=== PATIENT | female | born 1995 | race Caucasian/White ===

== ENCOUNTER 2019-09-02 19:25 | Outpatient (CLI) | payer MEDICAID ==
[2019-09-02 19:54] LABS: APPEARANCE,URINE CLEAR; BILIRUBIN,URINE NEGATIVE (NEGATIVE); COLOR,URINE YELLOW; GLUCOSE, URINE NEGATIVE (NEGATIVE); KETONES,URINE NEGATIVE (NEGATIVE); LEUKOCYTE ESTERASE,URINE NEGATIVE (NEGATIVE); NITRITE,URINE NEGATIVE (NEGATIVE); PROTEIN,URINE NEGATIVE (NEGATIVE); URINE SPECIFIC GRAVITY 1.008; UROBILINOGEN,URINE NEGATIVE mg/dL (<2.0)
[2019-09-02 20:12] LABS: URINE AMPHETAMINES SCREEN NEGATIVE; URINE BARBITURATES SCREEN NEGATIVE; URINE BENZODIAZEPINES SCREEN NEGATIVE; URINE COCAINE SCREEN NEGATIVE; URINE MARIJUANA (THC) SCREEN NEGATIVE; URINE METHADONE SCREEN NEGATIVE; URINE PHENCYCLIDINE SCREEN NEGATIVE
--- NOTE | 2019-09-02 20:44 | Non Stress Test Report ---
Non Stress Test Datetime Report Generated by CPN: 09/02/2019 20:44 DEMOGRAPHIC EGA NST: 35.2 INDICATION Indication for Study (NST) Other: labor check URINE RESULTS Urine Protein, NST: Negative Urine Ketones - NST: Negative Urine Glucose - NST: Negative Urine Blood - NST: Negative MONITORING Monitor Explained: Monitor Explained; Test Explained; Patient Verbalized Understanding Time on Monitor: 09/02/2019 19:45 Time off Monitor: 09/02/2019 20:31 NST Duration: 46 NST INTERVENTIONS NST Interventions: PO Hydration BABY A: [id number] BABY A Movement : Present Contraction Frequency : occasional FHR Baseline : 140 Accelerations : 15X15 Decelerations : None Variability : Moderate 6-25bpm NST Review: Meets Criteria for Reactive NST NST Review and Verified By : ELVIN Powers NST Results: Reactive NST REPORT Report Trigger: Send Report
== END 2019-09-02 20:38 | disposition home or self-care (01) ==
LOC: LC 19:25
PROVIDERS: ATTEND Obstetrics & Gynecology
DX: O47.03 False labor before 37 completed weeks of gestation, third trimester (principal); Z3A.35 35 weeks gestation of pregnancy; Z87.891 Personal history of nicotine dependence
CPT/HCPCS: 59025; 80307; 81001

== ENCOUNTER 2019-09-08 10:20 | Inpatient (IN) | payer MEDICAID ==
[2019-09-08 11:03] LABS: APPEARANCE,URINE CLOUDY; BILIRUBIN,URINE NEGATIVE (NEGATIVE); COLOR,URINE AMBER; GLUCOSE, URINE NEGATIVE (NEGATIVE); KETONES,URINE NEGATIVE (NEGATIVE); LEUKOCYTE ESTERASE,URINE LARGE (NEGATIVE); NITRITE,URINE NEGATIVE (NEGATIVE); PROTEIN,URINE 30 mg/dL (NEGATIVE); URINE SPECIFIC GRAVITY 1.021
[2019-09-08 11:27] LABS: URINE AMPHETAMINES SCREEN NEGATIVE; URINE BARBITURATES SCREEN NEGATIVE; URINE BENZODIAZEPINES SCREEN NEGATIVE; URINE COCAINE SCREEN NEGATIVE; URINE MARIJUANA (THC) SCREEN NEGATIVE; URINE METHADONE SCREEN NEGATIVE; URINE PHENCYCLIDINE SCREEN NEGATIVE
[2019-09-08] MEDS ORDERED: RINGERS SOLUTION,LACTATED 1,000 ML IV ONE (12:40)
[2019-09-08] MEDS ORDERED: BETAMET ACET/BETAMET NA INJ 6 MG/1 ML IM ONE (12:43)
[2019-09-08] MEDS ORDERED: BETAMET ACET/BETAMET NA INJ 6 MG/1 ML ONE (12:44)
[2019-09-08] MEDS ORDERED: MAG HYDROX/AL HYDROX/SIMETH SUSP 30 ML UDCUP ONE (12:44)
[2019-09-08] MEDS ORDERED: PENICILLIN G POTASSIUM 5,000,000 UNIT in DEXTROSE 5%-WATER 100 ML IV ONE ×2 (13:00→14:00)
--- NOTE | 2019-09-08 13:00 | Admission Physical ---
Datetime Report Generated by CPN: 09/08/2019 12:59 CURRENT ADMISSION Chief Complaint: Uterine Contractions Chief Complaint Other: also c/o LOF, actim prom neg Indication for Induction: Not Applicable Admit Impression : , Intrauterine ; Active Labor Admit Plan: Admit to Unit; Initiate Labor Protocol ALLERGIES Medication Allergies: No Medication Allergies: No Known Allergies (09/08/2019) Latex: No Latex Allergies Food Allergies: none Environmental Allergies: none OBSTETRICAL HISTORY EDC: 10/05/2019 00:00 : 4 Para: 1 Gestational Diabetes: No Rh Sensitization: No Incompetent Cervix: No ANGEL: No Infertility: No ART Treatment: No Uterine Anomaly: No IUGR: No Hx Previous C/S: No Macrosomia: No Hx Loss/Stillborn: No PIH: No Hx : No Placenta Previa/Abruption: No Depression/PP Depression: No PTL/PROM: No Post Hemorrhage: No Current Procedures: Ultrasound; NST Obstetrical History Comments: g1 - SAB g2 - SAB g3 - 08/16/18 at 39 weeks for IOL - PP hemorrhage, 3rd degree tear g4 - current - close spaced pregnancies SEE RECORDS Alcohol: No Marijuana : No Cocaine: No Other Illicit Drugs: No Cigarettes: Former Smoker. 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 Heart Disease: No Hosp/Surgery: No Autoimmune Disorder: No Anesthetic Complications: No Kidney Disease: No Abnormal Pap Smear: No Neuro/Epilepsy: No Psychiatric Disorders: Yes Other Medical Diseases: No Hepatitis/Liver Disease: No Significant Family History: No Varicosities/Phlebitis: No Trauma/Violence : No Thyroid Dysfunction: No Medical History Comments: pp anxiety - took zoloft but no longer taking 2004 lumpectomy 2007 appendectomy INFECTIOUS HISTORY Gonorrhea: Yes Genital Herpes: No Chlamydia: No Tuberculosis: No Syphilis: No Hepatitis: No HIV/AIDS Exposure: No Rash or Viral Illness: No HPV: No Infectious History Comments: December 2017 PHYSICAL EXAM General: Normal HEENT: Normal Neurologic: Normal Thyroid: Deferred Heart: Normal Lungs: Normal Breast: Deferred Back: Normal Abdomen: Normal Genitourinary Exam: Normal Extremities: Normal DTRs: Deferred Pelvic Type: Adequate Physical Exam Comments: pelvis provent o 8# Vital Signs: Reviewed; Within Normal Limits VAGINAL EXAM Dilatation: 4 Effacement: 50 Contraction Comments: q2 mins MEMBRANES Membranes: Intact FETUS A EGA: 36.1 Monitoring: External US FHR- Baseline: 135 Variability: Moderate 6-25bpm Accelerations: 15X15 Decelerations: None Estimated Weight (gm): 3000 Presentation: Vertex Admit Comment: at 36w1d in for regular contractions. actim prom negative. cervical change from 2 to 4cm. GBS swab collected. pt very anxious. c/w Dr Fonseca: admit, celestone, penicillin, anticipate . PLANS FOR LABOR AND DELIVERY Labor and Delivery: Plan Pain Management: Epidural Feeding Preference: Both Circumcision: N/A INFORMED CONSENT Assignment: Radha Burrows MD Signature: with User ID: [email or web address] : with User ID: [email or web address]
[2019-09-08] MEDS ORDERED: PENICILLIN G-K 5 MILLION UNIT VIAL ONE (13:04)
[2019-09-08 13:08] LABS: ABSOLUTE LYMPHOCYTES (AUTO) 2.3 10^3/uL (0.5-4.7); ABSOLUTE MONOCYTES (AUTO) 0.6 10^3/uL (0.1-1.4); ABSOLUTE NEUT (AUTO) 9.5 10^3/uL (1.7-8.2); BASOPHILS % (AUTO) 0.2 % (0-2); EOSINOPHILS % (AUTO) 0.1 % (0-6); HEMATOCRIT 35.1 % (36.0-47.0); HEMOGLOBIN 11.7 g/dL (12.0-15.5); LYMPHOCYTES % (AUTO) 18.8 % (13-45); MEAN CORPUSCULAR HEMOGLOBIN 28.3 pg (27.0-33.4); MEAN CORPUSCULAR HGB CONC 33.3 g/dL (32.0-36.0); MEAN CORPUSCULAR VOLUME 85 fl (80-97); PLATELET COUNT 225 10^3/uL (150-450); RED BLOOD COUNT 4.13 10^6/uL (3.72-5.28); SEGMENTED NEUTROPHILS % (AUTO) 75.9 % (42-78); TOTAL CELLS COUNTED % (AUTO) 100 %; WHITE BLOOD COUNT 12.4 10^3/uL (4.0-10.5)
[2019-09-08] MEDS ORDERED: HYDROXYZINE HCL INJ 50 MG/1 ML VIAL IM ONE (13:30)
[2019-09-08] MEDS ORDERED: PENICILLIN G POTASSIUM 2,500,000 UNIT in DEXTROSE 5%-WATER 50 ML IV SCH ×2 (17:00→18:00)
--- NOTE | 2019-09-08 17:38 | PDOC DISCHARGE SUMMARY ---
Impression - Admit/DC Date/PCP Admission Date/Primary Care Provider: 09/08/19 12:45 TEENA VIGIL MD Discharge Date: 09/08/19 - Discharge Diagnosis (1) labor Is this a current diagnosis for this admission?: Yes - Assessment Summary: The patient presented with strong contractions at 36 weeks and was thought to be in labor. However after further monitoring she has stopped arnulfo is not in active labor. We are prepared as she received a steroid dose. We will let her go home to rest at this point her repeat exam is and -3. She has an appointment tomorrow and I have asked her to keep that. I bastard to come back if her contractions increase or her water breaks. - Additional Information Resuscitation Status: Full Code Discharge Diet: As Tolerated Discharge Activity: Activity As Tolerated Referrals: TEENA VIGIL MD [Primary Care Provider] - Home Medications: Vits96/Iron Fum/Folic [ Tablet] 1 each PO DAILY 09/02/19 History of Present Illiness History of Present Illness: AVA CARVALHO is a 24 year old female Physical Exam - Physical Exam Vital Signs: Intake & Output 09/07/19 09/08/19 09/09/19 06:59 06:59 06:59 Weight 55.8 kg Results Laboratory Results: WBC 12.4 10^3/uL (4.0-10.5) H 09/08/19 12:55 RBC 4.13 10^6/uL (3.72-5.28) 09/08/19 12:55 Hgb 11.7 g/dL (12.0-15.5) L 09/08/19 12:55 Hct 35.1 % (36.0-47.0) L 09/08/19 12:55 MCV 85 fl (80-97) 09/08/19 12:55 MCH 28.3 pg (27.0-33.4) 09/08/19 12:55 MCHC 33.3 g/dL (32.0-36.0) 09/08/19 12:55 RDW 13.0 % (11.5-14.0) 09/08/19 12:55 Plt Count 225 10^3/uL (150-450) 09/08/19 12:55 Lymph % (Auto) 18.8 % (13-45) 09/08/19 12:55 [place] % (Auto) 5.0 % (3-13) 09/08/19 12:55 Eos % (Auto) 0.1 % (0-6) 09/08/19 12:55 Baso % (Auto) 0.2 % (0-2) 09/08/19 12:55 Absolute Neuts (auto) 9.5 10^3/uL (1.7-8.2) H 09/08/19 12:55 Absolute Lymphs (auto) 2.3 10^3/uL (0.5-4.7) 09/08/19 12:55 Absolute Monos (auto) 0.6 10^3/uL (0.1-1.4) 09/08/19 12:55 Absolute Eos (auto) 0.0 10^3/uL (0.0-0.6) 09/08/19 12:55 Absolute Basos (auto) 0.0 10^3/uL (0.0-0.2) 09/08/19 12:55 Seg Neutrophils % 75.9 % (42-78) 09/08/19 12:55 Urine Color JOHNSON 09/08/19 10:47 Urine Appearance CLOUDY 09/08/19 10:47 Urine pH 5.0 (5.0-9.0) 09/08/19 10:47 Ur Specific [place] 1.021 09/08/19 10:47 Urine Protein 30 mg/dL (NEGATIVE) H 09/08/19 10:47 Urine Glucose (UA) NEGATIVE mg/dL (NEGATIVE) 09/08/19 10:47 Urine Ketones NEGATIVE mg/dL (NEGATIVE) 09/08/19 10:47 Urine Blood NEGATIVE (NEGATIVE) 09/08/19 10:47 Urine Nitrite NEGATIVE (NEGATIVE) 09/08/19 10:47 Urine Bilirubin NEGATIVE (NEGATIVE) 09/08/19 10:47 Urine Urobilinogen 2.0 mg/dL (<2.0) H 09/08/19 10:47 Ur Leukocyte Esterase LARGE (NEGATIVE) H 09/08/19 10:47 Urine Ascorbic Acid 20 (NEGATIVE) H 09/08/19 10:47 Membranes Rupture NEGATIVE (NEGATIVE) 09/08/19 10:47 Urine Opiates Screen NEGATIVE 09/08/19 09:45 Urine Methadone Screen NEGATIVE 09/08/19 09:45 Ur Barbiturates Screen NEGATIVE 09/08/19 09:45 Ur Phencyclidine Scrn NEGATIVE 09/08/19 09:45 Ur Amphetamines Screen NEGATIVE 09/08/19 09:45 U Benzodiazepines Scrn NEGATIVE 09/08/19 09:45 Urine Cocaine Screen NEGATIVE 09/08/19 09:45 U Marijuana (THC) Screen NEGATIVE 09/08/19 09:45 Blood Type A NEGATIVE 09/08/19 12:55 Antibody Screen POSITIVE 09/08/19 12:55 Antibody Identification RHOGAM INDUCED ANTI-D 09/08/19 12:55 Stroke Is this a Stroke Patient?: No Acute Heart Failure - Is this a Heart Failure Patient?: No
== END 2019-09-08 17:44 | disposition home or self-care (01) | DRG 833 ==
LOC: LC 10:20 → LR 12:45
PROVIDERS: ADMIT Obstetrics & Gynecology; ATTEND Obstetrics & Gynecology
DX: O60.03 Preterm labor without delivery, third trimester (principal); Z3A.36 36 weeks gestation of pregnancy
CPT/HCPCS: 36415; 59025; 80307; 81005; 84112; 85025; 86592; 86850; 86870; 86900; 86901; 87081; 87086; 96372; J0702; J2540; J3410; J7060

== ENCOUNTER 2019-09-11 20:16 | Observation (INO) | payer MEDICAID ==
[2019-09-11 20:46] LABS: APPEARANCE,URINE CLEAR; BILIRUBIN,URINE NEGATIVE (NEGATIVE); COLOR,URINE YELLOW; GLUCOSE, URINE NEGATIVE (NEGATIVE); KETONES,URINE NEGATIVE (NEGATIVE); LEUKOCYTE ESTERASE,URINE NEGATIVE (NEGATIVE); NITRITE,URINE NEGATIVE (NEGATIVE); PROTEIN,URINE NEGATIVE (NEGATIVE); URINE SPECIFIC GRAVITY 1.006; UROBILINOGEN,URINE NEGATIVE mg/dL (<2.0)
[2019-09-11 21:10] LABS: URINE AMPHETAMINES SCREEN NEGATIVE; URINE BARBITURATES SCREEN NEGATIVE; URINE BENZODIAZEPINES SCREEN NEGATIVE; URINE COCAINE SCREEN NEGATIVE; URINE MARIJUANA (THC) SCREEN NEGATIVE; URINE METHADONE SCREEN NEGATIVE; URINE PHENCYCLIDINE SCREEN NEGATIVE
[2019-09-11] MEDS ORDERED: RINGERS SOLUTION,LACTATED 1,000 ML IV ONE (22:30)
[2019-09-11] MEDS ORDERED: RINGERS SOLUTION,LACTATED 1,000 ML IV PRN (22:30)
[2019-09-11] MEDS ORDERED: BETAMET ACET/BETAMET NA INJ 6 MG/1 ML IM ONE (22:33)
[2019-09-11 22:54] LABS: ABSOLUTE EOSINOPHILS # (AUTO) 0.1 10^3/uL (0.0-0.6); ABSOLUTE LYMPHOCYTES (AUTO) 2.9 10^3/uL (0.5-4.7); ABSOLUTE MONOCYTES (AUTO) 0.9 10^3/uL (0.1-1.4); ABSOLUTE NEUT (AUTO) 8.8 10^3/uL (1.7-8.2); BASOPHILS % (AUTO) 0.2 % (0-2); EOSINOPHILS % (AUTO) 0.8 % (0-6); HEMATOCRIT 32.5 % (36.0-47.0); HEMOGLOBIN 10.9 g/dL (12.0-15.5); MEAN CORPUSCULAR HEMOGLOBIN 28.6 pg (27.0-33.4); MEAN CORPUSCULAR HGB CONC 33.7 g/dL (32.0-36.0); MEAN CORPUSCULAR VOLUME 85 fl (80-97); MONOCYTES % (AUTO) 7.2 % (3-13); PLATELET COUNT 260 10^3/uL (150-450); RED BLOOD COUNT 3.83 10^6/uL (3.72-5.28); RED CELL DISTRIBUTION WIDTH 13.3 % (11.5-14.0); SEGMENTED NEUTROPHILS % (AUTO) 68.8 % (42-78); TOTAL CELLS COUNTED % (AUTO) 100 %; WHITE BLOOD COUNT 12.8 10^3/uL (4.0-10.5)
--- NOTE | 2019-09-11 23:06 | Admission Physical ---
Datetime Report Generated by CPN: 09/11/2019 23:06 CURRENT ADMISSION Chief Complaint: Uterine Contractions Chief Complaint Other: also c/o LOF, actim prom neg Indication for Induction: Not Applicable Admit Impression : , Intrauterine ; Observation/Evaluation Admit Plan: Admit to Unit; Observation/Evaluation ALLERGIES Medication Allergies: No Medication Allergies: No Known Allergies (09/11/2019) Latex: No Latex Allergies Food Allergies: none Environmental Allergies: none OBSTETRICAL HISTORY EDC: 10/05/2019 00:00 : 4 Para: 1 Term: 1 : 0 SAB: 2 IAB: 0 Ectopic: 0 Livin Cesareans: 0 VBACs: 0 Multiple Births: 0 Gestational Diabetes: No Rh Sensitization: No Incompetent Cervix: No ANGEL: No Infertility: No ART Treatment: No Uterine Anomaly: No IUGR: No Hx Previous C/S: No Macrosomia: No Hx Loss/Stillborn: No PIH: No Hx : No Placenta Previa/Abruption: No Depression/PP Depression: No PTL/PROM: No Post Hemorrhage: No Current Procedures: Ultrasound; NST Obstetrical History Comments: g1 - SAB g2 - SAB g3 - 08/16/18 at 39 weeks for IOL - PP hemorrhage, 3rd degree tear g4 - current - close spaced pregnancies SEE RECORDS Alcohol: No Marijuana : No Cocaine: No Other Illicit Drugs: No Cigarettes: Former Smoker. 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 Heart Disease: No Hosp/Surgery: No Autoimmune Disorder: No Anesthetic Complications: No Kidney Disease: No Abnormal Pap Smear: No Neuro/Epilepsy: No Psychiatric Disorders: Yes Other Medical Diseases: No Hepatitis/Liver Disease: No Significant Family History: No Varicosities/Phlebitis: No Trauma/Violence : No Thyroid Dysfunction: No Medical History Comments: pp anxiety - took zoloft but no longer taking 2005 lumpectomy 2008 appendectomy INFECTIOUS HISTORY Gonorrhea: Yes Genital Herpes: No Chlamydia: No Tuberculosis: No Syphilis: No Hepatitis: No HIV/AIDS Exposure: No Rash or Viral Illness: No HPV: No Infectious History Comments: December 2017 PHYSICAL EXAM General: Normal HEENT: Normal Neurologic: Normal Thyroid: Deferred Heart: Normal Lungs: Normal Breast: Deferred Back: Normal Abdomen: Normal Genitourinary Exam: Normal Extremities: Normal DTRs: Normal Pelvic Type: Adequate Physical Exam Comments: pelvis provent o 8# Vital Signs: Reviewed VAGINAL EXAM Dilatation: 4 Effacement: 50 Contraction Comments: q 2-3 MEMBRANES Membranes: Intact FETUS A EGA: 36.4 Monitoring: External US FHR- Baseline: 145 Variability: Moderate 6-25bpm Accelerations: 15X15 Decelerations: None FHR Category: Category I Estimated Weight (gm): 3000 Presentation: Vertex Admit Comment: 24yo at 36+4ega presents for uterine ctx q 2 minutes. She was admitted on for similar ctx and did note cervical change. Now cvx changed from 3 to 3.5cm. Celestone given once on will give again now. IVF ordered. Will admit for observation. GBS negative. She does admit to having had intercourse prior to both presentations for evaluations. Deliver if needed o/w will discharge if no further cervical change. PLANS FOR LABOR AND DELIVERY Labor and Delivery: Plan Pain Management: Epidural Feeding Preference: Both Benefit of Breast Feed Discussed: Yes Circumcision: N/A INFORMED CONSENT Informed Consent Obtained: Vaginal Delivery; Risks, Benefits and Alternatives Discussed Assignment: Radha Burrows MD Signature: with User ID: [email or web address] : with User ID: [email or web address]
[2019-09-11] MEDS ORDERED: BETAMET ACET/BETAMET NA INJ 6 MG/1 ML ONE (23:09)
--- NOTE | 2019-09-12 03:54 | PDOC DISCHARGE SUMMARY ---
Impression - Admit/DC Date/PCP Admission Date/Primary Care Provider: 09/11/19 22:47 TEENA VIGIL MD Discharge Date: 09/12/19 - Discharge Diagnosis (1) uterine contractions, antepartum Is this a current diagnosis for this admission?: Yes (2) labor Is this a current diagnosis for this admission?: Yes - Assessment Summary: Pt came in at 36+4ega with contractions q 2 minutes and cervical change from 2cm at discharge from discharge on 09/07. Cvx on admission for observation was 3.5cm which was change from initial presentation. - Additional Information Resuscitation Status: Full Code Discharge Diet: As Tolerated Discharge Activity: Activity As Tolerated Referrals: TEENA VIGIL MD [Primary Care Provider] - Home Medications: Vits96/Iron Fum/Folic [ Tablet] 1 each PO DAILY 09/02/19 History of Present Illiness History of Present Illness: AVA CARVALHO is a 24 year old female 36+4ega with contractions q 2 minutes and cervical change from 2cm at discharge from discharge on 09/07. Cvx on admission for observation was 3.5cm which was change from initial presentation. Pt given celestone (that was second dose). GBS negative and IV hydration. after approx 6 hours patient not feeling contractions any longer and cvx with no further change. Patient discharged to home. Hospital Course Hospital Course: 36+4ega with contractions q 2 minutes and cervical change from 2cm at discharge from discharge on 09/07. Cvx on admission for observation was 3.5cm which was change from initial presentation. Pt given celestone (that was second dose). GBS negative and IV hydration. after approx 6 hours patient not feeling contractions any longer and cvx with no further change. Patient discharged to home. Physical Exam - Physical Exam Vital Signs: Intake & Output 09/10/19 09/11/19 09/12/19 06:59 06:59 06:59 Weight 77.9 kg General appearance: PRESENT: no acute distress, well-developed, well-nourished Head exam: PRESENT: atraumatic, normocephalic Neck exam: PRESENT: full ROM. ABSENT: carotid bruit, JVD, lymphadenopathy, thyromegaly Respiratory exam: PRESENT: clear to auscultation annie, symmetrical, unlabored Cardiovascular exam: PRESENT: RRR. ABSENT: diastolic murmur, rubs, systolic murmur Pulses: PRESENT: normal dorsalis pedis pul, +2 pedal pulses bilateral Vascular exam: PRESENT: normal capillary refill GI/Abdominal exam: PRESENT: normal bowel sounds, soft. ABSENT: distended, guarding, mass, organolmegaly, rebound, tenderness Extremities exam: PRESENT: full ROM. ABSENT: calf tenderness, clubbing, pedal edema Neurological exam: PRESENT: alert, awake, oriented to person, oriented to place, oriented to time, oriented to situation, CN II-XII grossly intact. ABSENT: motor sensory deficit Psychiatric exam: PRESENT: appropriate affect, normal mood. ABSENT: homicidal ideation, suicidal ideation Skin exam: PRESENT: dry, intact, warm. ABSENT: cyanosis, rash Results Laboratory Results: WBC 12.8 10^3/uL (4.0-10.5) H 09/11/19 22:43 RBC 3.83 10^6/uL (3.72-5.28) 09/11/19 22:43 Hgb 10.9 g/dL (12.0-15.5) L 09/11/19 22:43 Hct 32.5 % (36.0-47.0) L 09/11/19 22:43 MCV 85 fl (80-97) 09/11/19 22:43 MCH 28.6 pg (27.0-33.4) 09/11/19 22:43 MCHC 33.7 g/dL (32.0-36.0) 09/11/19 22:43 RDW 13.3 % (11.5-14.0) 09/11/19 22:43 Plt Count 260 10^3/uL (150-450) 09/11/19 22:43 Lymph % (Auto) 23.0 % (13-45) 09/11/19 22:43 [place] % (Auto) 7.2 % (3-13) 09/11/19 22:43 Eos % (Auto) 0.8 % (0-6) 09/11/19 22:43 Baso % (Auto) 0.2 % (0-2) 09/11/19 22:43 Absolute Neuts (auto) 8.8 10^3/uL (1.7-8.2) H 09/11/19 22:43 Absolute Lymphs (auto) 2.9 10^3/uL (0.5-4.7) 09/11/19 22:43 Absolute Monos (auto) 0.9 10^3/uL (0.1-1.4) 09/11/19 22:43 Absolute Eos (auto) 0.1 10^3/uL (0.0-0.6) 09/11/19 22:43 Absolute Basos (auto) 0.0 10^3/uL (0.0-0.2) 09/11/19 22:43 Seg Neutrophils % 68.8 % (42-78) 09/11/19 22:43 Urine Color YELLOW 09/11/19 20:25 Urine Appearance CLEAR 09/11/19 20:25 Urine pH 7.0 (5.0-9.0) 09/11/19 20:25 Ur Specific [place] 1.006 09/11/19 20:25 Urine Protein NEGATIVE mg/dL (NEGATIVE) 09/11/19 20:25 Urine Glucose (UA) NEGATIVE mg/dL (NEGATIVE) 09/11/19 20:25 Urine Ketones NEGATIVE mg/dL (NEGATIVE) 09/11/19 20:25 Urine Blood NEGATIVE (NEGATIVE) 09/11/19 20:25 Urine Nitrite NEGATIVE (NEGATIVE) 09/11/19 20:25 Urine Bilirubin NEGATIVE (NEGATIVE) 09/11/19 20:25 Urine Urobilinogen NEGATIVE mg/dL (<2.0) 09/11/19 20:25 Ur Leukocyte Esterase NEGATIVE (NEGATIVE) 09/11/19 20:25 Urine Ascorbic Acid NEGATIVE (NEGATIVE) 09/11/19 20:25 Urine Opiates Screen NEGATIVE 09/11/19 20:25 Urine Methadone Screen NEGATIVE 09/11/19 20:25 Ur Barbiturates Screen NEGATIVE 09/11/19 20:25 Ur Phencyclidine Scrn NEGATIVE 09/11/19 20:25 Ur Amphetamines Screen NEGATIVE 09/11/19 20:25 U Benzodiazepines Scrn NEGATIVE 09/11/19 20:25 Urine Cocaine Screen NEGATIVE 09/11/19 20:25 U Marijuana (THC) Screen NEGATIVE 09/11/19 20:25 Blood Type A NEGATIVE 09/11/19:43 Antibody Screen POSITIVE 09/11/19 22:43 Antibody Identification RHOGAM INDUCED ANTI-D 09/11/19 22:43 Stroke Is this a Stroke Patient?: No Acute Heart Failure - Is this a Heart Failure Patient?: No
== END 2019-09-12 03:16 | disposition home or self-care (01) ==
LOC: LC 20:16 → LR 22:47
PROVIDERS: ADMIT Student in an Organized Health Care Education/Training Program; ATTEND Student in an Organized Health Care Education/Training Program
DX: O60.03 Preterm labor without delivery, third trimester (principal); Z3A.36 36 weeks gestation of pregnancy; Z87.891 Personal history of nicotine dependence; Z90.49 Acquired absence of other specified parts of digestive tract
CPT/HCPCS: 59025; 94760; 96372; 86900; 86901; 36415; 86870; 86850; 85025; 81005; 86592; 80307; G0378 ×2; J0702

== ENCOUNTER 2019-12-19 21:37 | Emergency (ER) | payer MEDICAID ==
[2019-12-19 23:10] VITALS: BP 108/65
[2019-12-19] MEDS ORDERED: NORMAL SALINE 1000 ML 1,000 ML IV ONE (23:40)
--- NOTE | 2019-12-20 00:11 | ER Document Report ---
ED Medical Screen (RME) - General Stated Complaint: DIARRHEA/NAUSEA/LOC THIS MORNING Time Seen by Provider: 12/19/19 23:26 Primary Care Provider: TEENA VIGIL MD [Primary Care Provider] - Follow up as needed Notes: Patient is a 24-year-old female with no past medical history who presents the emergency department with a syncopal episode that happened today. Patient states that she has had diarrhea for the past 3 months and she gave . She saw her primary care provider 2 to 3 weeks ago when she is still waiting on her stool results. Patient states that she has some abdominal cramping. States that her menstrual cycle was 2 weeks ago and states that it was a little darker than normal. States that she had some chills today. Denies any fever. Exam: Soft moderately tender mid lower abdomen. I have greeted and performed a rapid initial assessment of this patient. A comprehensive ED assessment and evaluation of the patient, analysis of test results and completion of medical decision making process will be conducted by an additional ED providers. - Related Data Allergies/Adverse Reactions: No Known Allergies Allergy (Verified 09/11/19 20:49) Home Medications: sertraline Physical Exam - Vital signs Vitals: Temp Pulse Resp BP Pulse Ox 98.5 F 91 20 108/65 100 12/19/19 23:08 12/19/19 23:08 12/19/19 23:08 12/19/19 23:08 12/19/19 23:08 Course - Vital Signs Vital signs: Temp Pulse Resp BP Pulse Ox 98.5 F 91 20 108/65 100 12/19/19 23:08 12/19/19 23:08 12/19/19 23:08 12/19/19 23:08 12/19/19 23:08 Doctor's Discharge - Discharge Referrals: TEENA VIGIL MD [Primary Care Provider] - Follow up as needed
== END 2019-12-20 00:19 | disposition left against medical advice (07) ==
LOC: ER 21:37
DX: R55 Syncope and collapse (principal); R19.7 Diarrhea, unspecified; R10.9 Unspecified abdominal pain; R10.819 Abdominal tenderness, unspecified site; Z79.899 Other long term (current) drug therapy; Z53.20 Procedure and treatment not carried out because of patient's decision for unspecified reasons
CPT/HCPCS: 99281

== ENCOUNTER 2019-12-29 10:03 | Day surgery (SDC) | payer MEDICAID ==
[2019-12-26 11:18] LABS: HEMATOCRIT 36.9 % (36.0-47.0); HEMOGLOBIN 12.4 g/dL (12.0-15.5); MEAN CORPUSCULAR HEMOGLOBIN 28.3 pg (27.0-33.4); MEAN CORPUSCULAR HGB CONC 33.7 g/dL (32.0-36.0); MEAN CORPUSCULAR VOLUME 84 fl (80-97); PLATELET COUNT 217 10^3/uL (150-450); RED BLOOD COUNT 4.39 10^6/uL (3.72-5.28); RED CELL DISTRIBUTION WIDTH 14.8 % (11.5-14.0); WHITE BLOOD COUNT 6.2 10^3/uL (4.0-10.5)
[2019-12-26 12:26] LABS: APPEARANCE,URINE SLIGHTLY-CLOUDY; BILIRUBIN,URINE NEGATIVE (NEGATIVE); COLOR,URINE YELLOW; GLUCOSE, URINE NEGATIVE (NEGATIVE); KETONES,URINE NEGATIVE (NEGATIVE); LEUKOCYTE ESTERASE,URINE LARGE (NEGATIVE); NITRITE,URINE NEGATIVE (NEGATIVE); PROTEIN,URINE NEGATIVE (NEGATIVE); URINE SPECIFIC GRAVITY 1.013; UROBILINOGEN,URINE NEGATIVE mg/dL (<2.0)
--- NOTE | 2019-12-27 08:26 | EKG REPORT ---
SEVERITY:- BORDERLINE ECG - SINUS BRADYCARDIA ATRIAL PREMATURE COMPLEX PROBABLE LEFT ATRIAL ABNORMALITY : Confirmed by: Katie Godwin MD 27-Dec-2019 08:25:39
[~2019-12-29 10:03] MED LIST: LACTATED RINGERS 1000 ML IV PRN; LIDOCAINE 0.5% INJ-PF (5 MG/ML) 50 ML SDV SUBCUT PRN; RINGERS SOLUTION,LACTATED 500 ML IV ONE; ROCURONIUM BROMIDE INJ 50 MG/5 ML VIAL IV ONE; SUCCINYLCHOLINE CHLORIDE INJ 200 MG/10 ML VIAL ONE
[2019-12-29] MEDS ORDERED: ONDANSETRON HCL INJ/PF 4 MG/2 ML SDV ONE (10:06)
[2019-12-29] MEDS ORDERED: PROPOFOL INJ 200 MG/20 ML VIAL IV ONE (10:06)
[2019-12-29] MEDS ORDERED: MIDAZOLAM 2 MG/2 ML INJ ONE (10:06)
[2019-12-29] MEDS ORDERED: DEXAMETHASONE SOD PHOSPHATE INJ 4 MG/1 ML VIAL ONE (10:06)
[2019-12-29] MEDS ORDERED: HYDROMORPHONE HCL INJ/PF 2 MG/ML AMPULE ONE (10:06)
[2019-12-29] MEDS ORDERED: SUGAMMADEX SODIUM 200 MG/2 ML SDV IV ONE (11:15)
[2019-12-29] MEDS ORDERED: MEPERIDINE HCL/PF INJ 25 MG/1 ML DISP.SYRIN IV PRN (13:08)
[2019-12-29] MEDS ORDERED: ONDANSETRON HCL INJ/PF 4 MG/2 ML SDV IV PRN (13:08)
[2019-12-29] MEDS ORDERED: FENTANYL CITRATE INJ/PF 100 MCG/2 ML AMPUL IV PRN ×3 (13:08)
[2019-12-29] MEDS ORDERED: OXYCODONE-ACETAMINOPHEN 5-325 MG TABLET PO PRN ×4 (13:08→14:38)
[2019-12-29] MEDS ORDERED: DIPHENHYDRAMINE HCL 50 MG/ML VIAL IV PRN (13:08)
[2019-12-29] MEDS ORDERED: PROMETHAZINE HCL INJ 25 MG/1 ML VIAL IV PRN ×2 (13:08)
--- NOTE | 2019-12-29 14:02 | Discharge Summary ---
Discharge Summary (SDC) - Discharge Final Diagnosis: Multiparity , unwanted fertility Date of Surgery: 12/29/19 Discharge Date: 12/29/19 Condition: Stable Forms: ASU Anesthesia D/C Instruction, Discharge POC-Surgical Service Treatment or Instructions: TAKE MEDICATIONS DIRECTED FOLLOW UP WITH YOUR MD SCHEDULED DIET TOLERATED PELVIC REST NO TUB BATHS AND NO SWIMMING LOOK FOR SIGNS OF INFECTION OUTLINED IN YOUR DISCHARGE PAPERWORK Prescriptions: Ibuprofen [Ibu] 800 mg PO Q8 10 Days #30 tablet Oxycodone HCl/Acetaminophen [Percocet 5-325 mg Tablet] 1 tab PO Q4 PRN 4 Days #20 tab PRN Reason: For Pain Scale 4-5 Referrals: GLORIA WATTERS MD [ACTIVE PROVISIONAL STAFF] - Respiratory Treatments at Home: Deep Breathing/Coughing Discharge Activity: Activity As Tolerated, No Lifting Over 10 Pounds - No heavy lifting for 6 weeks, Pelvic Rest - for 1 week, Walk Frequently Home Care Assistance: None Needed Report the Following to Your Physician Immediately: Shortness of Breath, Nausea, Vomiting, Increase in Pain, Fever over 101 Degrees, Large Clots, IV Site Infection Signs
[2019-12-29] MEDS ORDERED: PROMETHAZINE HCL INJ 25 MG/1 ML VIAL ONE (14:05)
[2019-12-29] MEDS: FENTANYL CITRATE INJ/PF 100 MCG/2 ML AMPUL ONE ×2 (14:06→14:15)
--- NOTE | 2019-12-29 14:13 | Operative Report ---
Operative Report DATE OF SURGERY: 12/29/19 PREOPERATIVE DIAGNOSIS: Multiparity. Unwanted fertilty POSTOPERATIVE DIAGNOSIS: Same as above OPERATION: Laparoscopic bilateral tubal ligation SURGEON: GLORIA WATTERS ANESTHESIA: GA TISSUE REMOVED OR ALTERED: None COMPLICATIONS: 2-3 mm cervical laceration which was stitiched ESTIMATED BLOOD LOSS: 20 cc INTRAOPERATIVE FINDINGS: Normal appearing uterus, bilateral fallopain tubes and ovaries. PROCEDURE: Findings: Normal-appearing uterus bilateral fallopian tubes and ovaries. Liver edge and gall bladder seen and appears normal Position: To recovery room in stable condition Description of procedure: The patient was taken to the operating room and general anesthesia was administered and found to be adequate. She was then placed on the OR table in the dorsal lithotomy position. The Patient was prepped and draped in usual sterile fashion. Timeout was taken. A Palacios retractor was used as well as a weighted speculum to visualize the cervix. The anterior lip of the cervix was then grasped with a single tooth tenaculum and an acorn uterine manipulator was placed. At this time attention was turned of the patient's abdomen and sterile gloves were donned a 1 cm infra umbilical incision was made vertically and carried down to the level of the rectus fascia. The rectus fascia was then grasped with 2 Antionette clamps elevated and incised with Chris scissors. A digital sweep was done noting entry into the peritoneum. The fascia was tagged bilaterally with 0- vicryl suture. A #10 Cadet trocar was positioned and CO2 gas was used to insufflate the abdomen to a quantity sufficient for the laparoscopy. The laparoscope was inserted and a survey was done of the abdomen pictures were obtained. Findings noted normal anatomy. The right fallopian tube was identified and traced to its fimbriated end. The right ovary was noted to be normal. A Filshie clip was then placed approximately 1 to 2 cm from the uterine cornu across the right fallopian tube. The Filshie clip was noted to surround the tube in its entirety good blanching and hemostasis was noted. The left fallopian tube was then traced to its fibriated end and a Filshie clip was placed 1 to 2 cm from the uterine cornu on the left fallopian tube. The Filshie clip was noted to surround the tube in its entirety with good blanching and hemostasis was noted. Pictures were obtained. At this point the procedure was terminated. All instrument removed from the patient's abdomen and CO2 gas was allowed to escape. The infraumbilical port was removed. The fascia was closed with 0 Vicryl suture. The skin was closed with 3-0 Monocryl in a series of interrupted stitiches. The skin incision was then clean dried and Dermabond was applied over the skin incision. All instruments were removed from the vagina. Oozing was noted on anterior lip of cervix on maternal right at tenaculum site. A small 2-3 mm tear was noted and a figure of eight stitch of 0 vicryl was placed. The area was then hemostatic. All instruments removed from the vagina. All instrument sponge and needle counts were correct x3 for the procedure the patient tolerated the procedure well. She will proceed to recovery room in stable condition
[2019-12-29] MEDS ORDERED: RINGERS SOLUTION,LACTATED 1,000 ML IV PRN (14:36)
[2019-12-29] MEDS ORDERED: KETOROLAC TROMETHAMINE INJ/PF 30 MG/1 ML SDV IM PRN (14:36)
[2019-12-29] MEDS ORDERED: IBUPROFEN 800 MG TABLET PO PRN (14:37)
[2019-12-29] MEDS ORDERED: OXYCODONE-ACETAMINOPHEN 5-325 MG TABLET ONE (14:51)
[2019-12-29 16:42] VITALS: BP 108/63
== END 2019-12-29 16:20 | disposition home or self-care (01) ==
LOC: OROUT 10:03
PROVIDERS: ATTEND Obstetrics & Gynecology
DX: Z30.2 Encounter for sterilization (principal); N99.71 Accidental puncture and laceration of a genitourinary system organ or structure during a genitourinary system procedure; Y83.8 Other surgical procedures as the cause of abnormal reaction of the patient, or of later complication, without mention of misadventure at the time of the procedure; N92.6 Irregular menstruation, unspecified; Z03.818 Encounter for observation for suspected exposure to other biological agents ruled out; Z87.891 Personal history of nicotine dependence; Z90.49 Acquired absence of other specified parts of digestive tract
CPT/HCPCS: 93005; 36415; 85027; 87635; 81005; 81025; 93010; 00851; 58671; J2250; J3490; J1100; J3010; J1170; J2550; J0330; J2405; J2704; C9803; 851